=== PATIENT | male | born 1945 | race Caucasian/White ===

== ENCOUNTER 2022-11-16 12:51 | Outpatient (CLI) | payer MEDICARE, SELFPAY ==
[2022-11-16 13:00] VITALS: PULSE 70; O2SAT 96
[2022-11-16 13:05] VITALS: PULSE 116; O2SAT 95
[2022-11-16 13:15] VITALS: PULSE 74; O2SAT 96
[2022-11-16 13:31] LABS: Alveolar/Arterial O2 Gradient 33.3 mmHg; Base Excess ABG 3.6 mEq/l (+/-2.0); Carboxyhemoglobin 0.3 % THb (0-2.0); Fractional Inspired Oxygen 21 %; HCO3 ABG 26.7 mEq/l (22.0-26.0); Methemoglobin ABG 0.1 %THb (0-1.5); Oxygen Content ABG 18.8 %vol (16.0-22.0); Oxygen Saturation ABG 95.9 % (95.0-100.0); Oxyhemoglobin 95.3 % THb (90.0-100.0); PCO2 ABG 35.8 mmHg (35.0-45.0); PO2 ABG 73.6 mmHg (80.0-100.0); Reduced Hemoglobin 4.3 %THb (0-5.0); pH ABG 7.491 (7.350-7.450)
[2022-11-16 13:35] LABS: Modified Allen's Test Pass; Site Drawn RIGHT RADIAL
--- NOTE | 2022-11-16 14:20 | HOMEO2EVAL ---
Evaluation was performed at [facility] Home Oxygen Evaluation RC: Home Oxygen (O2) Evaluation Start: 11/16/22 14:17 Freq: Status: Active Protocol: RPE Activity Type Activity Date Activity User E-sign Co-sign Detail Recorded Client Recorded Date Recorded By Document 11/16/22 13:00 [email or web address] [email or web address] 11/16/22 14:20 DJO Document 11/16/22 13:05 [email or web address] [email or web address] 11/16/22 14:20 DJO Document 11/16/22 13:15 [email or web address] [email or web address] 11/16/22 14:20 DJO 11/16/22 11/16/22 11/16/22 13:00 13:05 13:15 Home O2 Evaluation [Oxygen] -Test Phase Resting Exercise Resting -Oxygen Delivery Room Air Room Air Room Air [Pulse Oximetry] -Pulse Oximetry (90-100 %) 96 95 96 [Pulse Rate] -Pulse Rate (60-100 beats/min) 70 116 H 74 [Evaluation] -Activity Tolerance Fair [Exercise] -Ambulation Distance (feet) 500 -Ambulation Distance (meters) 152.39 [Charges] -Treatment Charges O2 Evaluation - Outpatient
--- NOTE | 2022-11-16 15:56 | P.PCNPFT_ITS ---
PFT Procedure Performed PFT Procedure Performed Spirometry with Pre/Post Bronchodilator Plethysmography (Lung Vol) Diffusing Cap (DLCO) Flow Vol Loop PFT Interpretation This is a pulmonary function test with pre and post-bronchodilator spirometry, plethysmography, diffusing capacity, and ABG. The test was performed and results interpreted in accordance with the 2019 and 2005 ATS/ERS Task Force guidelines respectively using the Global Lung Function Initiative-2012 reference equations. Patient demonstrated good effort and cooperation. Reproducibility criteria were met. The quality of the pre bronchodilator spirometry maneuver was Grade A and post bronchodilator spirometry maneuver was Grade A. Findings: Spirometry: The contour the inspiratory and expiratory flow tracing are normal. The pre bronchodilator FVC is 2.34 L, 61% predicted. The pre bronchodilator FEV1 is 1.88 L, 65% predicted. The pre bronchodilator FEV1: FVC ratio is 80%. The post bronchodilator FVC is 2.51 L, representing a 7% increase. The post bronchodilator FEV1 is 1.92 L, representing a 2% increase. The post bronchodi lator FEV1: FVC ratio 76%. Plethysmography: The total lung capacity is 3.95 L, 58% predicted. The functional residual capacity is 1.78 L, 49% predicted. The residual volume is 1.47 L, 58% predicted. Diffusing capacity: The diffusing capacity unadjusted for hemoglobin and carboxyhemoglobin is 14.3, 59% predicted. The diffusing capacity adjusted for alveolar volume is 3.69, 98% predicted. Resting room air arterial blood gas: PH 7.49, PaCO2 36, PaO2 74. Impression: There is a moderate restrictive ventilatory abnormality. The spirometry is normal without evidence of an obstructive abnormality. There is no significant improvement after inhaling a single dose of albuterol. The diffusing capacity unadjusted for hemoglobin and carboxyhemoglobin is moderately decreased and normalizes when adjusted for alveolar volume. The resting room air arterial blood gas demonstrates a combined uncompensated respiratory alkalosis and metabolic alkalosis without hypoxemia. There are no prior studies for comparison
== END 2022-11-16 12:52 | disposition home or self-care (01) ==
LOC: ANHPFT 12:52
PROVIDERS: PCP Emergency Medicine; Visit Provider Internal Medicine Pulmonary Disease
DX: R06.02 Shortness of breath (principal); R94.2 Abnormal results of pulmonary function studies
CPT/HCPCS: 36600; 82375; 82805; 83050; 94060; 94618; 94726; 94729